=== PATIENT | female | born 1940 | race Two or more races ===

== ENCOUNTER 2022-08-14 10:00 | Inpatient (IN) | payer OTHER ==
[~2022-08-14] VITALS: Ht 154.9 cm; Wt 59.0 kg
[2022-08-14] MEDS ORDERED: SODIUM CHLORIDE 0.9% 500 ML IV ONE (10:15)
[2022-08-14 10:36] LABS: Basophils # (auto) 0.1 10 ^3/uL (0-0.2); Basophils % (auto) 0.8 % (0.0-2.0); Eosinophils # (auto) 0.5 10 ^3/uL (0-0.8); Eosinophils % (auto) 8.2 % (0.0-7.0); Hemoglobin 12.2 g/dL (12.2-16.2); Lymphocytes # (auto) 1.7 10 ^3/uL (0.4-5.4); Lymphocytes % (auto) 27.5 % (10.0-50.0); Mean Corpuscular Hemoglobin 28.2 pg (28.0-32.0); Mean Corpuscular Volume 85.4 fL (80.0-100.0); Monocytes # (auto) 0.7 10 ^3/uL (0-1.3); Monocytes % (auto) 11.6 % (0.0-12.0); Neutrophils # (auto) 3.1 10 ^3/uL (1.6-8.6); Neutrophils % (auto) 51.9 % (37.0-80.0); Nucleated Red Blood Cells % 0.1 %; Red Blood Cells 4.33 10^6/uL (4.0-5.20); Red Cell Distribution Width 12.6 % (11.8-14.3)
[2022-08-14 10:55] LABS: Potassium 4.6 mmol/L (3.5-5.1)
[2022-08-14 11:00] LABS: Albumin 3.6 g/dL (3.4-5.0); BUN/Creatinine Ratio 15.1 (10.0-20.0); Bilirubin, Total 0.8 mg/dL (0.2-1.0); Calcium 8.7 mg/dL (8.5-10.1); Magnesium 2.1 mg/dL (1.6-2.6); Total Protein 7.5 g/dL (6.4-8.2)
[2022-08-14] MEDS ORDERED: TRIA50CA43 PO (13:39)
[2022-08-14] MEDS ORDERED: LEV100T PO (13:39)
[2022-08-14] MEDS ORDERED: ALBU0.084 NEB (13:39)
[2022-08-14] MEDS ORDERED: ATEN25TA PO (13:39)
[2022-08-14] MEDS ORDERED: TRAM50TA2 PO (13:39)
[2022-08-14] MEDS ORDERED: ZOLP10TA6 PO (13:39)
[2022-08-14] MEDS ORDERED: TIZA-206 PO (13:39)
[2022-08-14] MEDS ORDERED: GABA-1250 PO (13:39)
[2022-08-14] MEDS ORDERED: ATOR10TA52 PO (13:39)
[2022-08-14] MEDS ORDERED: AZEL0.054 EACHEYE (13:39)
[2022-08-14] MEDS ORDERED: NORT10CA PO (13:39)
[2022-08-14] MEDS ORDERED: ACETAMINOPHEN 325 MG TAB PO PRN (13:45)
[2022-08-14] MEDS ORDERED: NITROGLYCERIN 0.4 MG SL TAB SL PRN (13:45)
[2022-08-14] MEDS ORDERED: MORPHINE SULFATE INJ 2 MG/ml SYRG IV PRN (13:45)
[2022-08-14] MEDS ORDERED: ALBUTEROL SULF 2.5 MG/0.5ML(0.5%) NEB SOLN NEB PRN (13:45)
[2022-08-14] MEDS: GABAPENTIN 300 MG CAP PO SCH ×2 (15:00→22:40)
[2022-08-14] MEDS: SODIUM CHLORIDE 0.9% 1,000 ML IV SCH (15:01)
[2022-08-14] MEDS: ZOLPIDEM TARTRATE 5 MG TAB PO PRN (23:11)
[2022-08-14] MEDS: traMADol HCL 50 MG TAB PO PRN (23:11)
[2022-08-15 06:04] LABS: Basophils # (auto) 0 10 ^3/uL (0-0.2); Basophils % (auto) 0.5 % (0.0-2.0); Eosinophils # (auto) 0.7 10 ^3/uL (0-0.8); Eosinophils % (auto) 7.3 % (0.0-7.0); Hematocrit 36.3 % (36.0-46.0); Hemoglobin 12.2 g/dL (12.2-16.2); Lymphocytes # (auto) 1.9 10 ^3/uL (0.4-5.4); Lymphocytes % (auto) 21.2 % (10.0-50.0); Mean Corpuscular Hemoglobin 28.3 pg (28.0-32.0); Mean Corpuscular Hgb Conc. 33.7 g/dL (32.0-36.0); Mean Corpuscular Volume 83.9 fL (80.0-100.0); Monocytes # (auto) 0.8 10 ^3/uL (0-1.3); Monocytes % (auto) 9.2 % (0.0-12.0); Neutrophils # (auto) 5.7 10 ^3/uL (1.6-8.6); Neutrophils % (auto) 61.8 % (37.0-80.0); Nucleated Red Blood Cells % 0.1 %; Red Blood Cells 4.33 10^6/uL (4.0-5.20); Red Cell Distribution Width 12.8 % (11.8-14.3); White Blood Cell 9.2 10^3/uL (4.4-10.8)
[2022-08-15] MEDS: GABAPENTIN 300 MG CAP PO SCH ×3 (06:09→22:05)
[2022-08-15] MEDS: SODIUM CHLORIDE 0.9% 1,000 ML IV SCH (06:09)
[2022-08-15 06:24] LABS: Potassium 4.1 mmol/L (3.5-5.1)
[2022-08-15 06:32] LABS: Albumin 3.5 g/dL (3.4-5.0); BUN/Creatinine Ratio 21.1 (10.0-20.0); Bilirubin, Total 0.4 mg/dL (0.2-1.0); Calcium 8.6 mg/dL (8.5-10.1); Total Protein 7.5 g/dL (6.4-8.2)
[2022-08-15] MEDS: ATORVASTATIN 20 MG TAB PO SCH (09:49)
[2022-08-15] MEDS: LEVOTHYROXINE SODIUM 100 MCG TAB PO SCH (09:50)
[2022-08-15] MEDS: ENOXAPARIN SOD 40 MG/0.4 ML SYRINGE SC SCH (09:51)
[2022-08-15] MEDS: TRIAMTERENE 50 MG PO SCH (09:52)
[2022-08-15] MEDS: traMADol HCL 50 MG TAB PO PRN ×2 (14:46→22:05)
[2022-08-15] MEDS ORDERED: LISINOPRIL 10 MG TAB PO ONE (15:45)
[2022-08-15] MEDS ORDERED: hydrALAZINE HCL 10 MG TAB PO PRN (15:45)
[2022-08-15 16:22] VITALS: BP 169/58
[2022-08-15 17:22] VITALS: BP 150/62
[2022-08-15 19:25] VITALS: BP_SYST 132; BP_SYST 153; BP_DIAS 49; BP_DIAS 65
[2022-08-15 22:00] VITALS: BP_SYST 132; BP_SYST 153; BP_SYST 161; BP_DIAS 47; BP_DIAS 49; BP_DIAS 65
[2022-08-15] MEDS: ZOLPIDEM TARTRATE 5 MG TAB PO PRN (22:05)
[2022-08-16 05:00] VITALS: BP 141/62
[2022-08-16 06:43] LABS: BUN/Creatinine Ratio 19.3 (10.0-20.0); Calcium 8.4 mg/dL (8.5-10.1); Potassium 3.8 mmol/L (3.5-5.1)
[2022-08-16] MEDS: GABAPENTIN 300 MG CAP PO SCH (06:45)
[2022-08-16] MEDS: TRIAMTERENE 50 MG PO SCH (09:25)
[2022-08-16] MEDS: ATORVASTATIN 20 MG TAB PO SCH (09:26)
[2022-08-16] MEDS: LEVOTHYROXINE SODIUM 100 MCG TAB PO SCH (09:26)
[2022-08-16] MEDS: ENOXAPARIN SOD 40 MG/0.4 ML SYRINGE SC SCH (09:27)
[2022-08-16] MEDS ORDERED: LISINOPRIL 10 MG TAB PO SCH (10:00)
[2022-08-16 10:18] VITALS: BP 121/61
[2022-08-16 11:39] VITALS: BP 121/61
== END 2022-08-16 12:50 | disposition home or self-care (01) | DRG 309 ==
LOC: EDBD 10:00 → ER 10:00 → TELE 13:37 → UNDODEPER 08-15 13:39 → TELE-CENTR 08-15 14:16
PROVIDERS: ADMIT Nurse Practitioner Family; ATTEND Internal Medicine Geriatric Medicine
DX: R00.1 Bradycardia, unspecified (principal); E87.1 Hypo-osmolality and hyponatremia; I47.1 Supraventricular tachycardia; J45.909 Unspecified asthma, uncomplicated; E03.9 Hypothyroidism, unspecified; N18.2 Chronic kidney disease, stage 2 (mild); I12.9 Hypertensive chronic kidney disease with stage 1 through stage 4 chronic kidney disease, or unspecified chronic kidney disease; R01.1 Cardiac murmur, unspecified; Z88.6 Allergy status to analgesic agent; Z88.1 Allergy status to other antibiotic agents; Z79.899 Other long term (current) drug therapy; Z90.710 Acquired absence of both cervix and uterus
CPT/HCPCS: 36415; 70450; 71045; 80048; 80053; 83735; 84443; 84484; 85025; 93005; 93306; 93886; G0378

== ENCOUNTER 2024-06-06 12:05 | Emergency (ER) | payer OTHER ==
[~2024-06-06] VITALS: Ht 154.9 cm; Wt 59.0 kg
[~2024-06-06 12:05] MED LIST: ALBU0.084 NEB; ATEN25TA PO; ATOR10TA52 PO; AZEL0.054 EACHEYE; GABA-1250 PO; LEVO-849 PO; NORT10CA PO; TIZA-206 PO; TRAM50TA2 PO; TRIA50CA43 PO; ZOLP10TA6 PO
--- NOTE | 2024-06-06 12:13 | ED.PDOC ---
History of Present Illness HPI Comments 83 y/o F, with a history of asthma, HLD, HTN, SVT, and thyroid disease, is BIBA for c/o facial pain and laceration to nose bridge s/p mechanical trip and fall, today. Per EMS report, patient is a resident of a care facility and was brought after sustaining a fall, this morning. Patient reports on tripping on a "bag," while ambulating, and falling face-forward onto the floor. She endorses on not losing consciousness then and recollecting series of events leading to and after fall and having no prior symptoms. Patient is remarked on history of recent cessation of ASA use. Patient denies having any additional injuries, headache, weakness, dizziness, numbness, tingling, vision or speech changes, or other associated symptoms at this time. Time Seen by MD: 12:00 Primary Care Provider: ROWENA Reviewed Notes: Nurses Notes, Egg [employer] Worker Notes, Medications, Allergies Allergies: Coded Allergies: Acetaminophen (Verified Allergy, Unknown, 08/14/22) Tetracycline (Verified Allergy, Unknown, 08/14/22) Home Meds Active Scripts Cephalexin (KEFLEX CAPSULE) 250 Mg Cp, 1 CAP PO QID, #28 CAP Prov:YOLA SANDOVAL MD 06/06/24 Reported Medications Azelastine Hcl (Ophth) (Azelastine Hcl) 0.05 % Pratik, EACHEYE 08/14/22 Gabapentin (Gabapentin) 300 Mg Cap, 1 CAP PO TID 08/14/22 Levothyroxine Sodium (SYNTHROID TABLET) 100 Mcg Tb, 1 TAB PO DAILY 08/14/22 Nortriptyline HCl (Nortriptyline Hydrochlori) 10 Mg Cap, 1 CAP PO 08/14/22 Albuterol Sulfate (Albuterol Sulfate) 0.083 % Neb, NEB 08/14/22 Triamterene (Triamterene) 50 Mg Cap, 1 CAP PO DAILY 08/14/22 Tizanidine Hydrochloride (Tizanidine Hydrochloride) 2 Mg Tab, 1 TAB PO BID 08/14/22 Atenolol (Atenolol) 25 Mg Tab, 1 TAB PO DAILY 08/14/22 Atorvastatin Calcium (ATORVASTATIN CALCIUM) 10 Mg Tab, 1 TAB PO DAILY 08/14/22 Tramadol Hcl (Tramadol Hcl) 50 Mg Tab, 1 TAB PO Q8HPRN PRN 08/14/22 Zolpidem Tartrate (Zolpidem Tartrate) 10 Mg Tab, 1 TAB PO QHSP PRN 08/14/22 Information Source: Patient, Emergency Med Personnel Mode of Arrival: EMS Severity: Moderate Timing: Hours Duration: Since onset Prehospital treatment: 12 Lead EKG, [facility] Past Medical History PAST MEDICAL HISTORY: Asthma, High Lipids, HTN, Thyroid Past Medical History (Other): SVT chronic back pain s/p spinal nerve stimulator implant Surgical History: Hysterectomy, Tonsillectomy Surgical History (Other): cataract surgery spinal nerve stimulator implant OCCUP THER History: No Pertinent OCCUP THER History Family History Family History (Other): SLE Social History Smoker: Non-Smoker, Quit Greater Than 1 Year Alcohol: Denies ETOH Use Drugs: Denies Drug Use Lives In: Home Constitutional: denies: chills, diaphoresis, fatigue, fever, malaise, sweats, weakness, others EENTM: denies: blurred vision, double vision, ear bleeding, ear discharge, ear drainage, ear pain, ear ringing, eye pain, eye redness, hearing loss, mouth pain, mouth swelling, nasal discharge, nose bleeding, nose congestion, nose pain, photophobia, tearing, throat pain, throat swelling, voice changes, others Respiratory: denies: cough, hemoptysis, orthopnea, SOB at rest, shortness of breath, SOB with excertion, stridor, wheezing, others Cardiovascular: denies: chest pain, dizzy spells, diaphoresis, Dyspnea on ex ertion, edema, irregular heart beat, left arm pain, lightheadedness, palpitations, PND, syncope, others Gastrointestinal: denies: abdomen distended, abdominal pain, blood streaked bowels, constipated, diarrhea, dysphagia, difficulty swallowing, hematemesis, melena, nausea, poor appetite, poor fluid intake, rectal bleeding, rectal pain, vomiting, others Genitourinary: denies: abnormal vagina bleeding, burning, dyspareunia, dysuria, flank pain, frequency, hematuria, incontinence, pain, , vagina discharge, urgency, others Neurological: denies: dizziness, fainting, headache, left sided numbness, left sided weakness, numbness, paresthesia, pre-existing deficit, right sided numbness, right sided weakness, seizure, speech problems, tingling, tremors, weakness, others Musculoskeletal: reports: others (facial pain); denies: back pain, gout, joint pain, joint swelling, muscle pain, muscle stiffness, neck pain Integumetry: reports: laceration (nose bridge ); denies: bruises, change in col or, change in hair/nails, dryness, lesions, lumps, rash, wounds, others Allergic/Immunocompromised: denies: Difficulty Healing, Frequent Infections, Hives, Itching, others Hematologic/Lymphatic: denies: anemia, blood clots, easy bleeding, easy bruising, swollen glands, others Endocrine: denies: excessive hunger, excessive sweating, excessive thirst, excessive urination, flushing, intolerance to cold, intolerance to heat, unexplained weight gain, unexplained weight loss, others Psychiatric: denies: anxiety, bipolar disorder, depression, hopeless, panic disorder, schizophrenia, sleepless, suicidal, others All Other Systems: Reviewed and Negative Physical Exam General Appearance: Mild Distress HEENT: Pharynx Normal, TMs Normal, Other (3 cm superficial laceration to the bridge of the nose with no significant active bleeding) Neck: Full Range of Motion, Non-Tender, Normal, Normal Inspection Respiratory: Chest Non-Tender, Lungs Clear, No Accessory Muscle Use, No Respiratory Distress, Normal Breath Sounds Cardiovascular: No Edema, No JVD, No Murmur, No Gallop, Normal Peripheral Pulses, Regular Rate/Rhythm Breast Exam: Deferred Gastrointestinal: No Organomegaly, Non Tender, No Pulsatile Mass, Normal Bowel Sounds, Soft Genitalia: Deferred Pelvic: Deferred Rectal: Deferred Extremities: No calf tenderness, Normal capillary refill, Normal inspection, Normal range of motion, Non-tender, No pedal edema Musculoskeletal : Apperance: Normal Neurologic: Alert, teacher learning disabled II-XII nml as Tested, No Motor Deficits, Normal Affect, Normal Mood, No Sensory Deficits Cerebellar Function: Normal Reflexes: Normal Skin: Dry, Lacerations (3 cm superficial laceration to the nasal bridge), Normal Color, Warm Lymphatic: No Adenopathy Was a procedure done? Was a procedure done?: Yes Sedation Sedation?: No Laceration Repair : Location nasal bridge Length 2 cm Anesthetic: Nothing Laceration Repair Prep: Saline, Betadine, Shur-Clens, Manual Scrub Laceration Repair Wound Comple: epidermis/dermis repair Laceration Repair: Dermabond Informed consent obtained: Yes Risks, benefits, and alternati: Yes Differential Dx Considerations may include: laceration, avulsion, closed head injury, intracranial bleeding, fractures, contusions, among others X-Ray, Labs, Meds, VS Vital Signs Date Time Temp Pulse Resp B/P (MAP) Pulse Ox O2 Delivery O2 Flow Rate FiO2 06/06/24 12:08 98.1 52 16 163/70 (101) 96 98.1 Lab Test 06/06/24 12:59 Range/Units White Blood Count 7.3 4.4-10.8 10^3/uL Red Blood Count 4.22 4.0-5.20 10^6/uL Hemoglobin 12.3 12.2-16.2 g/dL Hematocrit 36.2 36.0-46.0 % Mean Corpuscular Volume 85.7 80.0-100.0 fL Mean Corpuscular Hemoglobin 29.2 28.0-32.0 pg Mean Corpuscular Hemoglobin Concent 34.1 32.0-36.0 g/dL Red Cell Distribution Width 12.8 11.8-14.3 % Platelet Count 327 140-450 10^3/uL Mean Platelet Volume 7.6 6.9-10.8 fL Neutrophils (%) (Auto) 62.2 37.0-80.0 % Lymphocytes (%) (Auto) 20.5 10.0-50.0 % Monocytes (%) (Auto) 10.6 0.0-12.0 % Eosinophils (%) (Auto) 6.0 0.0-7.0 % Basophils (%) (Auto) 0.7 0.0-2.0 % Neutrophils # (Auto) 4.5 1.6-8.6 10 ^3/uL Lymphocytes # (Auto) 1.5 0.4-5.4 10 ^3/uL Monocytes # (Auto) 0.8 0-1.3 10 ^3/uL Eosinophils # (Auto) 0.4 0-0.8 10 ^3/uL Basophils # (Auto) 0 0-0.2 10 ^3/uL Nucleated Red Blood Cells 0.0 % Sodium Level 131 L 136-145 mmol/L Potassium Level 4.9 3.5-5.1 mmol/L Chloride Level 96 L 98-107 mmol/L Carbon Dioxide Level 29 20-31 mmol/L Anion Gap 6 5-15 Blood Urea Nitrogen 15 9-23 mg/dL Creatinine 0.83 0.550-1.02 mg/dL Glomerular Filtration Rate Calc 70 >90 mL/min BUN/Creatinine Ratio 18.1 10.0-20.0 Serum Glucose 94 74-106 mg/dL Calcium Level 9.6 8.7-10.4 mg/dL Current Medications Medications (Trade) Dose Ordered Sig/Juli Route Start Time Stop Time Status Last Admin Benzocaine (Dermoplast) 1 applic ONCE ONCE TOP 06/06/24 12:15 06/06/24 12:16 DC 06/06/24 13:35 PROCEDURE(s): FAC2C - MAXILLOFACIAL WITHOUT Impression: 1. Minimally depressed, comminuted fractures of the nasal bones. 2. Mildly displaced fracture of the nasal septum. : The patient's CBC is within limits. The patient will have Dermabond placed to the nasal area The patient was being discharged The patient was placed on Keflex The patient will return to the emergency department's condition worsens. Images Reviewed?: Images reviewed and evaluated by me Time of 1ST Reevaluation: 12:30 Reevaluation 1ST: Unchanged Time of 2ND Reevaluation: 13:40 Reevaluation 2ND: Improved Patient Education/Counseling: Diagnosis, Treatment, Prognosis, Need For Follow Up Family Education/Counseling: No Family Present Departure 1 Departure Time of Disposition: 15:02 Impression: Primary Impression: History of fall Additional Impressions: Nasal fracture Qualified Codes: S02.2XXA - Fracture of nasal bones, initial encounter for closed fracture Simple laceration of nose Disposition: 01 HOME / SELF CARE / HOMELESS Condition: Fair e-Prescriptions Cephalexin (KEFLEX CAPSULE) 250 Mg Cp 1 CAP PO QID, #28 CAP Prov: YOLA SANDOVAL MD 06/06/24 Discharged With: Self, Spouse Critical Care Note Critical Care Time?: No Stability Stability form required: No Heart Score Heart Score: Heart Score Response (Comments) Value History N/A 0 EKG N/A 0 Age N/A 0 Risk Factors N/A 0 Troponin N/A 0 Total 0 I personally scribed for YOLA SANDOVAL MD ([email or web address]) on 06/06/24 at 12:13. Electronically submitted by Ja Phan ([email or web address]). I personally scribed for YOLA SANDOVAL MD ([email or web address]) on 06/06/24 at 12:39. Electronically submitted by Ja Phan ([email or web address]). I personally scribed for YOLA SANDOVAL MD ([email or web address]) on 06/06/24 at 13:24. Electronically submitted by Ja Phan ([email or web address]). YOLA SANDOVAL MD Jun 06, 2024 12:13
--- NOTE | 2024-06-06 13:18 | DVH ---
EXAM: CT MAXILLOFACIAL WITHOUT INDICATION: fall EXAM DATE: 06/06/2024 12:24 PM COMPARISON: None TECHNIQUE: Multiple axial CT images of the maxilla and face were obtained using bone algorithm. Axial and coronal reformatting was done. Bone and soft tissue windows were reviewed. Radiation Dose Information: CT Dose: CTDI volume is 61.28 mGy. Dose-length product is 1324.65 mGy*cm Findings: There is no evidence of traumatic subluxations. Minimally depressed, comminuted fractures of the nasal bones. Mildly displaced fracture of the nasal septum. Mucoperiosteal thickening of the ethmoid sinuses and nasal turbinates. No evidence of lytic, blastic, or osseous destructive lesions. The remaining paranasal sinuses, middle ear cavities, and mastoid air cells are normally aerated. The globes and orbits are within normal limits. The nasopharynx and oropharynx are grossly unremarkable. The paraspinal and neck soft tissues appear within normal limits. Impression: 1. Minimally depressed, comminuted fractures of the nasal bones. 2. Mildly displaced fracture of the nasal septum.
[2024-06-06 13:27] LABS: Basophils # (auto) 0 10 ^3/uL (0-0.2); Basophils % (auto) 0.7 % (0.0-2.0); Eosinophils # (auto) 0.4 10 ^3/uL (0-0.8); Hematocrit 36.2 % (36.0-46.0); Hemoglobin 12.3 g/dL (12.2-16.2); Lymphocytes # (auto) 1.5 10 ^3/uL (0.4-5.4); Lymphocytes % (auto) 20.5 % (10.0-50.0); Mean Corpuscular Hemoglobin 29.2 pg (28.0-32.0); Mean Corpuscular Hgb Conc. 34.1 g/dL (32.0-36.0); Mean Corpuscular Volume 85.7 fL (80.0-100.0); Monocytes # (auto) 0.8 10 ^3/uL (0-1.3); Monocytes % (auto) 10.6 % (0.0-12.0); Neutrophils # (auto) 4.5 10 ^3/uL (1.6-8.6); Neutrophils % (auto) 62.2 % (37.0-80.0); Platelet Count (auto) 327 10^3/uL (140-450); Red Blood Cells 4.22 10^6/uL (4.0-5.20); Red Cell Distribution Width 12.8 % (11.8-14.3); White Blood Cell 7.3 10^3/uL (4.4-10.8)
[2024-06-06 13:35] LABS: Potassium 4.9 mmol/L (3.5-5.1)
[2024-06-06] MEDS: DERMOPLAST 60ML BOTTLE TOP ONE (13:35)
[2024-06-06 13:36] LABS: Anion Gap 6 (5-15); Calcium 9.6 mg/dL (8.7-10.4); Carbon Dioxide 29 mmol/L (20-31)
[2024-06-06 13:41] LABS: BUN/Creatinine Ratio 18.1 (10.0-20.0); Blood Urea Nitrogen 15 mg/dL (9-23); Glucose 94 mg/dL (74-106)
[2024-06-06 13:46] LABS: Chloride 96 mmol/L (98-107); Sodium 131 mmol/L (136-145)
[2024-06-06] MEDS ORDERED: CEPH250C PO (14:27)
[2024-06-06 15:23] VITALS: BP 148/86; PULSE 87; RESP 12; TEMP 97.8; O2SAT 99
== END 2024-06-06 15:24 | disposition home or self-care (01) ==
LOC: ER 12:05 → EDBD 12:05 → EDSEX 12:05 → ER 15:24
DX: S02.2XXA Fracture of nasal bones, initial encounter for closed fracture (principal); S01.21XA Laceration without foreign body of nose, initial encounter; E78.5 Hyperlipidemia, unspecified; J45.909 Unspecified asthma, uncomplicated; I10 Essential (primary) hypertension; Z88.1 Allergy status to other antibiotic agents; Z79.899 Other long term (current) drug therapy; Z90.710 Acquired absence of both cervix and uterus; W01.0XXA Fall on same level from slipping, tripping and stumbling without subsequent striking against object, initial encounter; Y93.89 Activity, other specified; Y92.89 Other specified places as the place of occurrence of the external cause; Y99.8 Other external cause status
CPT/HCPCS: 12011; 36415; 70486; 80048; 85025